=== PATIENT | female | born 1990 | race Caucasian/White ===

== ENCOUNTER 2018-01-28 06:28 | Inpatient (IN) | payer OTHER ==
[~2018-01-28] VITALS: Ht 154.9 cm; Wt 59.9 kg
[~2018-01-28 06:28] MED LIST: AZITHROMYCIN250 MG
[2018-01-28] MEDS ORDERED: PRENATAL FORMU1 EAC1 PO (08:48)
== END 2018-01-30 13:40 | disposition home or self-care (01) | DRG 775 ==
LOC: LDR 06:28 → OB/GYN 06:28
PROC: 10E0XZZ Delivery of Products of Conception, External Approach (ICD-10-PCS; principal; 2018-01-28)
PROC: 0KQM0ZZ Repair Perineum Muscle, Open Approach (ICD-10-PCS; 2018-01-28)
PROC: 0W8NXZZ Division of Female Perineum, External Approach (ICD-10-PCS; 2018-01-28)
PROC: 10907ZC Drainage of Amniotic Fluid, Therapeutic from Products of Conception, Via Natural or Artificial Opening (ICD-10-PCS; 2018-01-28)
PROC: 3E033VJ Introduction of Other Hormone into Peripheral Vein, Percutaneous Approach (ICD-10-PCS; 2018-01-28)
PROC: 4A1HXCZ Monitoring of Products of Conception, Cardiac Rate, External Approach (ICD-10-PCS; 2018-01-28)
DX: O70.1 Second degree perineal laceration during delivery (principal); Z37.0 Single live birth; Z3A.38 38 weeks gestation of pregnancy

== ENCOUNTER → 2023-10-02 10:41 | Outpatient (CLI) | payer OTHER ==
[~2023-10-02 10:41] MED LIST changes: +PRENATAL FORMU1 EAC1 PO
== END | disposition home or self-care (01) ==
LOC: PRENATAL 10:41
PROVIDERS: ATTEND Obstetrics & Gynecology Maternal & Fetal Medicine
DX: O35.3XX0 Maternal care for (suspected) damage to fetus from viral disease in mother, not applicable or unspecified (principal); O44.00 Complete placenta previa NOS or without hemorrhage, unspecified trimester; Z3A.19 19 weeks gestation of pregnancy

== ENCOUNTER 2024-01-01 11:19 | Outpatient (CLI) | payer OTHER | END 2024-01-01 11:20 | disposition home or self-care (01) | LOC: PRENATAL 11:19 | PROVIDERS: ATTEND Obstetrics & Gynecology Maternal & Fetal Medicine | DX: O26.843 Uterine size-date discrepancy, third trimester (principal); O36.8130 Decreased fetal movements, third trimester, not applicable or unspecified; Z3A.32 32 weeks gestation of pregnancy ==